=== PATIENT | male | born 1970 | race African-American/Black ===

== ENCOUNTER 2025-02-06 15:08 | Emergency (ER) | payer MEDICAID ==
[~2025-02-06] VITALS: Ht 188 cm; Wt 91.0 kg
[2025-02-06 15:11] VITALS: O2SAT 98
[2025-02-06 15:30] VITALS: TEMP 36.8
[2025-02-06 16:07] LABS: BASOPHILS % 0.2 % (0.0-2.0); EOSINOPHILS % 2.9 % (0.0-5.0); HEMATOCRIT. 43.2 % (42.0-52.0); HEMOGLOBIN. 14.2 g/dL (14.0-18.0); LYMPHOCYTES % 30.4 % (20.0-50.0); MEAN CORPUSCULAR HEMOGLOBIN 31.7 pg (28.0-32.0); MEAN CORPUSCULAR HGB CONC 32.9 g/dL (31.0-37.0); MEAN CORPUSCULAR VOLUME 96.6 fL (80.0-94.0); MEAN PLATELET VOLUME 7.8 fl (7.4-10.4); MONOCYTES % 9.6 % (2.0-8.0); NEUTROPHILS % 56.9 % (40.0-76.0); PLATELET 189 x1000/uL (130-400); RED BLOOD CELL COUNT 4.48 mill/uL (4.7-6.1); RED CELL DISTRIBUTION WIDTH 13.4 % (11.6-14.6)
[2025-02-06 16:22] LABS: INR 1.1; PROTHROMBIN TIME 11.7 sec (9.6-11.0)
[2025-02-06 16:24] LABS: CHLORIDE 106 mEq/L (98-107); SODIUM 139 mEq/L (136-145)
[2025-02-06 16:25] LABS: CALCIUM 9.7 mg/dL (8.7-10.4); CARBON DIOXIDE 29 mEq/L (21-32)
[2025-02-06 16:30] LABS: CREATININE 1.3 mg/dL (0.6-1.3); ETHANOL BLOOD < 10 mg/dL (<10); GLUCOSE 112 mg/dL (70-105); UREA NITROGEN BLOOD 18 mg/dL (9-23)
[2025-02-06 16:43] LABS: TROPONIN I HIGH SENSITIVITY < 4 ng/L (3.0-53)
[2025-02-06 18:15] VITALS: BP 111/71; PULSE 87; RESP 19; O2SAT 99
== END 2025-02-06 18:25 | disposition home or self-care (01) ==
LOC: ER 15:08
DX: R55 Syncope and collapse (principal); F41.9 Anxiety disorder, unspecified; E78.00 Pure hypercholesterolemia, unspecified; I10 Essential (primary) hypertension
CPT/HCPCS: 36415; 80048; 80320; 84484; 85025; 93005; 99284; G0480